=== PATIENT | male | born 1985 | race Caucasian/White ===

== ENCOUNTER → 2017-01-04 | Outpatient (CLI) | payer MEDICARE, MEDICAID | END | disposition home or self-care (01) | LOC: RAD.S 15:57 | DX: R51 Headache (principal); H92.02 Otalgia, left ear ==

== ENCOUNTER 2017-02-19 10:36 | Emergency (ER) | payer MEDICARE, MEDICAID ==
--- NOTE | 2017-02-22 19:03 | ER ---
ADMIT: 02/19/2017 RM/LOC: ER [facility] MR#: [id number] [address] [id number] [place] [address] Emergency Room Report SEX: M AGE: 32 : 1985 DATE: 02/19/2017 ADDENDUM: A 32-year-old white male, who is obviously agitated and psychotic, being brought in by police. They are going to [facility] him to [facility]. He has been over there before. At this time, he is not suicidal, just quite anxious, not entirely cooperative. He is delusional, questionable hallucinating, but I think this is all delusions. He is otherwise stable for transfer. His EPC lab was essentially negative except for positive drug screen for cannabinoids. CONDITION ON DISCHARGE: Serious but stable. Harsha Adkins MD/ shayy JOB #: [id number] CC: Harsha Adkins MD, Attending Physician Nathan Akers MD, Family Physician
== END 2017-02-19 12:10 | disposition short-term general hospital (02) ==
LOC: ER 10:36
DX: F23 Brief psychotic disorder (principal); F12.10 Cannabis abuse, uncomplicated; Z79.899 Other long term (current) drug therapy